=== PATIENT | male | born 1950 | race Caucasian/White ===

== ENCOUNTER 2017-03-08 22:38 | Emergency (ER) | payer MEDICARE, BC ==
[2017-03-08] MEDS ORDERED: Lidocaine 1% 30 ML SDV INJECT ONE (23:28)
[2017-03-08] MEDS ORDERED: Bacitracin Oint 1 GM U/D Packet TOP ONE (23:28)
[2017-03-09] MEDS ORDERED: Amoxicillin/Clavulanate K 875-125 MG Tab PO ONE (00:06)
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
[2017-03-09 01:18] VITALS: BP 163/90
== END 2017-03-09 01:06 | disposition home or self-care (01) ==
LOC: DL.ED 22:38
DX: S61.213A Laceration without foreign body of left middle finger without damage to nail, initial encounter (principal); E78.00 Pure hypercholesterolemia, unspecified; K21.9 Gastro-esophageal reflux disease without esophagitis; I12.9 Hypertensive chronic kidney disease with stage 1 through stage 4 chronic kidney disease, or unspecified chronic kidney disease; N18.9 Chronic kidney disease, unspecified; E03.9 Hypothyroidism, unspecified; Z88.1 Allergy status to other antibiotic agents; Z88.5 Allergy status to narcotic agent; Z88.8 Allergy status to other drugs, medicaments and biological substances; Z91.011 Allergy to milk products; Z91.018 Allergy to other foods; Z79.82 Long term (current) use of aspirin; Z79.899 Other long term (current) drug therapy; Z98.890 Other specified postprocedural states; W23.1XXA Caught, crushed, jammed, or pinched between stationary objects, initial encounter
CPT/HCPCS: 12001; 99283; A9270

== ENCOUNTER 2018-12-12 06:56 | Day surgery (SDC) | payer MEDICARE, BC ==
[2018-12-12] MEDS ORDERED: Sodium Chloride 0.9% 10 ML Syringe IV ONE (06:57)
[2018-12-12] MEDS ORDERED: Midazolam 1 MG/ML 2 ML SDV IV ONE (06:57)
[2018-12-12] MEDS ORDERED: Dexamethasone 4 MG/ML SDV IV ONE (06:57)
[2018-12-12] MEDS ORDERED: Sodium Chloride 0.9% 10 ML Syringe FLUSH PRN (07:00)
[2018-12-12] MEDS ORDERED: Phenylephrine 10% Ophth Soln 5 ML Bot EYELF PRN (07:00)
[2018-12-12] MEDS ORDERED: Moxifloxacin 0.5% Ophth Soln 3 ML Bottle EYELF ONE (07:00)
[2018-12-12] MEDS ORDERED: Timolol Maleate 0.5% Ophth Soln 5 ML Bottle EYELF ONE (07:00)
[2018-12-12] MEDS ORDERED: Cataract Ophth Solution EYELF ONE (07:00)
[2018-12-12] MEDS ORDERED: Ondansetron 4 MG/2 ML SDV IVPUSH PRN (07:00)
[2018-12-12] MEDS ORDERED: Phenylephrine 10% Ophth Soln 5 ML Bot EYELF ONE (07:00)
[2018-12-12] MEDS ORDERED: Acetaminophen 325 MG Tab PO PRN (07:00)
[2018-12-12] MEDS ORDERED: Proparacaine 0.5% Ophth Soln 15 ML Bottle EYELF ONE (07:00)
[2018-12-12] MEDS ORDERED: Povidone-Iodine 5% Sterile Ophth Soln 30 ML Bottle EYELF ONE ×2 (07:00→08:26)
[2018-12-12] MEDS ORDERED: Lidocaine 1% 30 ML SDV ONE (08:26)
[2018-12-12] MEDS ORDERED: Tetracaine HCl/PF 0.5% 4 ML Bottle EYELF ONE (08:26)
[2018-12-12] MEDS ORDERED: Apraclonidine 0.5% Ophth Soln 5 ML Bot EYELF ONE (08:26)
[2018-12-12] MEDS ORDERED: Vancomycin 500 MG SDV EYELF ONE (08:27)
[2018-12-12] MEDS ORDERED: Dexamethasone/Neomycin/Polymyxin B Ophth Oint 3.5 GM Tube EYELF ONE (08:27)
[2018-12-12] MEDS ORDERED: Diclofenac Sodium 0.1% Ophth Soln 5 ML Bottle EYELF ONE (08:27)
[2018-12-12] MEDS ORDERED: Balanced Salt Solution Ophth Irrig 500 ML Bottle IOCULAR ONE (08:27)
[2018-12-12] MEDS ORDERED: Chondroitin Sulfate/Hyaluronate Sodium Ophth Inj 0.75 ML Syringe EYELF ONE (08:27)
[2018-12-12 08:55] VITALS: PULSE 69
[2018-12-12 09:23] VITALS: BP 133/84
--- NOTE | 2018-12-12 11:32 | OR ---
DATE: PREOPERATIVE DIAGNOSIS: Visually significant mixed cataract, left eye. POSTOPERATIVE DIAGNOSIS: Visually significant mixed cataract, left eye. PROCEDURE: Extracapsular cataract extraction with intraocular lens implant, left eye. ANESTHESIA: Topical/local MAC. COMPLICATIONS: None. INDICATION: Mr. Acosta was seen in the clinic. He has had complaints of a slow progressive decrease in vision. His clinical examination reveals visually significant mixed cataract. He has difficulty reading and difficulty playing games on his phone. He is unhappy with his vision. I explained options, offered cataract surgery, and I explained risks including, but not limited to, infection, retinal detachment, loss of vision, and need for additional surgery amongst others. We discussed implant options. He has requested a monofocal implant. OPERATIVE DESCRIPTION: After informed consent was obtained and the risks, benefits, and alternatives were explained, the patient was brought to the operative suite and topical anesthesia was administered. The patient was then prepped and draped in the sterile fashion and attention was placed on the left eye. A sterile lid speculum was placed into the left eye to allow operative exposure. A full-thickness paracentesis was made in the temporal portion of the operative eye. Preservative-free lidocaine 0.1 mL was injected into the anterior chamber followed by viscoelastic. A full-thickness corneal incision was then made into the anterior chamber. A bent needle cystotome was used to create a small johnathan in the anterior capsule. The capsulorrhexis forceps was then used to create a 360-degree curvilinear capsulorrhexis. The nucleus was then removed using a phacoemulsification handpiece and the remaining cortical material was then removed with irrigation and aspiration handpiece. Following removal of the cortical material, the capsular bag was then inspected and noted to be free of any holes or tears. Viscoelastic was then injected into the capsular bag and the intraocular lens was inserted into the capsular bag. The viscoelastic material was then removed from both the anterior and posterior chambers and from behind the IOL. The lens and capsular bag were then reinspected. The IOL was well centered and the capsular bag intact. The wound and paracentesis sites were inspected and hydrated with balanced saline solution. Both were found to be self-sealing. The intraocular pressure was assessed digitally and found to be within normal range. A good red reflex was noted at the completion of the procedure. No complications occurred during the operation. At the completion of the procedure, David Lua, and Iopidine drops were placed into the operative eye. A sterile eye shield was placed over the operative eye and the patient was transported to the postoperative recovery area having tolerated the procedure well. Postoperative instructions were given along with a postoperative appointment. The patient was advised to call with any questions or concerns. [facility] /[id number]
== END 2018-12-12 09:21 | disposition home or self-care (01) ==
LOC: DL.SDS 06:56
PROVIDERS: ATTEND Ophthalmology
DX: H26.8 Other specified cataract (principal); G04.90 Encephalitis and encephalomyelitis, unspecified; G62.9 Polyneuropathy, unspecified; I12.9 Hypertensive chronic kidney disease with stage 1 through stage 4 chronic kidney disease, or unspecified chronic kidney disease; N18.3 Chronic kidney disease, stage 3 (moderate); C11.9 Malignant neoplasm of nasopharynx, unspecified; Z51.11 Encounter for antineoplastic chemotherapy; E03.9 Hypothyroidism, unspecified; E78.5 Hyperlipidemia, unspecified; K21.9 Gastro-esophageal reflux disease without esophagitis; R13.14 Dysphagia, pharyngoesophageal phase; L30.9 Dermatitis, unspecified; M19.90 Unspecified osteoarthritis, unspecified site; Z87.891 Personal history of nicotine dependence; Z88.6 Allergy status to analgesic agent; Z88.1 Allergy status to other antibiotic agents; Z91.040 Latex allergy status; Z88.5 Allergy status to narcotic agent; Z88.8 Allergy status to other drugs, medicaments and biological substances; Z91.018 Allergy to other foods; Z91.048 Other nonmedicinal substance allergy status
CPT/HCPCS: 00142; 66984; A9270; C1780; J1100; J2001; J2250; J3370; V2632

== ENCOUNTER 2020-08-18 06:57 | Day surgery (SDC) | payer MEDICARE, BC ==
[~2020-08-18 06:57] MED LIST: Dextrose 5%-0.45% NaCl 1,000 ML IV SCH; Sodium Chloride 0.9% 10 ML Syringe FLUSH PRN
[2020-08-18] MEDS ORDERED: Propofol 200 MG/20 ML SDV IV ONE (06:58)
[2020-08-18] MEDS ORDERED: Dextrose 5%-0.45% NaCl 1,000 ML IV SCH (07:00)
--- NOTE | 2020-08-18 10:51 | OR ---
DATE: 08/18/2020 PROCEDURES: Total colonoscopy, narrow-band imaging, and cold snare polypectomy. INSTRUMENT USED: PCF-H190DL Olympus video colonoscope. PREMEDICATIONS: Provided by Anesthesiology Services. INDICATIONS: The patient with increasing constipation, not responsive to medical measures. Colonoscopic examination is done for detection of any polypoid lesions and removal, endoscopic hemostasis therapy if needed. DESCRIPTION OF PROCEDURE: Initial rectal exam was unremarkable. Rigid anoscopy was normal. The colonoscope was passed with ease. Numerous scattered diverticula were noted in the distal left colon along with some deformity. The scope was passed with ease up to the cecum. Photographs were taken of the cecum showing more than 1 cm sized benign-appearing polyp just near the appendiceal orifice. NBI views were obtained, photographs were taken. No bleeding was noted from any of the visualized areas at the commencement of the examination. The bowel preparation was found to be adequate, Clinton scale 2 in all the regions. In the proximal ascending colon, diminutive benign-appearing polyp was noted, NBI views were obtained, photographs were taken, cold snare polypectomy was done, the tissue was retrieved and sent for histopathology. No stricture. No vascular ectasia. No large isolated ulcerations seen. No evidence of diffuse inflammatory bowel disease in the form of friability, contact bleeding, or ulcerations. Probing the proximal sides of folds and flexures using adequate distention and clearing up the stool material, withdrawal of the scope was made, cecum to rectum time over 6 minutes. No bleeding was noted from any of the visualized areas at the completion of examination. IMPRESSION: 1. Diverticulosis. 2. Sessile cecal polyp. 3. Diminutive ascending colon polyp. The patient tolerated the procedure well. [facility] /[id number]
[2020-08-18 11:31] VITALS: BP 179/90; PULSE 51
== END 2020-08-18 10:20 | disposition home or self-care (01) ==
LOC: DL.ENDO 06:57
PROVIDERS: ATTEND Internal Medicine Gastroenterology
DX: Z12.11 Encounter for screening for malignant neoplasm of colon (principal); K63.5 Polyp of colon; K57.30 Diverticulosis of large intestine without perforation or abscess without bleeding; E66.09 Other obesity due to excess calories; I10 Essential (primary) hypertension; E78.00 Pure hypercholesterolemia, unspecified; E03.9 Hypothyroidism, unspecified; G62.9 Polyneuropathy, unspecified; N52.9 Male erectile dysfunction, unspecified; N40.0 Benign prostatic hyperplasia without lower urinary tract symptoms; Z98.890 Other specified postprocedural states; Z87.891 Personal history of nicotine dependence; Z68.28 Body mass index [BMI] 28.0-28.9, adult
CPT/HCPCS: 00812; J2704; J7042

== ENCOUNTER 2021-11-03 08:54 | Emergency (ER) | payer MEDICARE, BC ==
[2021-11-03 09:26] VITALS: BP 198/113; PULSE 59
[2021-11-03 09:54] LABS: ANION GAP 12.8 mEq/L (7-13)
== END 2021-11-03 10:21 | disposition home or self-care (01) ==
LOC: DL.ED 08:54
DX: I12.9 Hypertensive chronic kidney disease with stage 1 through stage 4 chronic kidney disease, or unspecified chronic kidney disease (principal); E03.9 Hypothyroidism, unspecified; N18.9 Chronic kidney disease, unspecified; E83.42 Hypomagnesemia; E78.00 Pure hypercholesterolemia, unspecified; N40.0 Benign prostatic hyperplasia without lower urinary tract symptoms; Z88.5 Allergy status to narcotic agent; Z88.1 Allergy status to other antibiotic agents; Z91.011 Allergy to milk products; Z88.8 Allergy status to other drugs, medicaments and biological substances; Z91.040 Latex allergy status; Z79.82 Long term (current) use of aspirin; Z79.899 Other long term (current) drug therapy
CPT/HCPCS: 36415; 80053; 83735; 84443; 84484; 85025; 93005; 93010; 99284; 99284-25

== ENCOUNTER 2022-05-01 08:33 | Emergency (ER) | payer MEDICARE, BC ==
[2022-05-01 08:55] VITALS: BP 145/93; PULSE 64
[2022-05-01 09:32] LABS: PTT,PARTIAL THROMBOPLSTIN TIME 23.8 SEC (22.0-34.0)
[2022-05-01 09:39] LABS: ANION GAP 10.9 mEq/L (7-13); CHLORIDE,CL 104 mmol/L (98-107); SODIUM,NA 141 mmol/L (136-145)
[2022-05-01 09:40] LABS: ESTIMATED GFR 56 mL/min (>=60)
[2022-05-01] MEDS ORDERED: metroNIDAZOLE 250 MG Tab ONE (10:05)
[2022-05-01] MEDS ORDERED: Ciprofloxacin 500 MG Tab ONE (10:05)
== END 2022-05-01 10:15 | disposition home or self-care (01) ==
LOC: DL.ED 08:33
DX: K62.5 Hemorrhage of anus and rectum (principal); K57.30 Diverticulosis of large intestine without perforation or abscess without bleeding; K80.20 Calculus of gallbladder without cholecystitis without obstruction; E78.00 Pure hypercholesterolemia, unspecified; I10 Essential (primary) hypertension; Z91.048 Other nonmedicinal substance allergy status; Z88.1 Allergy status to other antibiotic agents; Z88.5 Allergy status to narcotic agent; Z88.6 Allergy status to analgesic agent; Z91.040 Latex allergy status; Z88.8 Allergy status to other drugs, medicaments and biological substances; Z91.011 Allergy to milk products; Z79.899 Other long term (current) drug therapy; Z79.82 Long term (current) use of aspirin
CPT/HCPCS: 36415; 74176; 80053; 82272; 83605; 85025; 85610; 85730; 86140; 99284

== ENCOUNTER 2022-06-06 06:58 | Day surgery (SDC) | payer MEDICARE, BC ==
[~2022-06-06 06:58] MED LIST changes: -Dextrose 5%-0.45% NaCl 1,000 ML IV SCH; +Sodium Chloride 0.9% 10 ML Syringe FLUSH SCH
[2022-06-06] MEDS: Dextrose 5%-0.45% NaCl 1,000 ML IV SCH (07:48)
[2022-06-06 11:54] VITALS: BP 150/78
[2022-06-06 12:56] VITALS: PULSE 69
== END 2022-06-06 12:47 | disposition home or self-care (01) ==
LOC: DL.ENDO 06:58
PROVIDERS: ATTEND Internal Medicine Gastroenterology
DX: K62.5 Hemorrhage of anus and rectum (principal); K57.30 Diverticulosis of large intestine without perforation or abscess without bleeding; K21.9 Gastro-esophageal reflux disease without esophagitis; I10 Essential (primary) hypertension; I12.9 Hypertensive chronic kidney disease with stage 1 through stage 4 chronic kidney disease, or unspecified chronic kidney disease; N18.9 Chronic kidney disease, unspecified; E11.9 Type 2 diabetes mellitus without complications; E78.00 Pure hypercholesterolemia, unspecified; E03.9 Hypothyroidism, unspecified; N40.0 Benign prostatic hyperplasia without lower urinary tract symptoms; Z98.890 Other specified postprocedural states; Z86.010 Personal history of colon polyps; Z87.891 Personal history of nicotine dependence; Z79.899 Other long term (current) drug therapy; Z88.1 Allergy status to other antibiotic agents; Z88.5 Allergy status to narcotic agent
CPT/HCPCS: 00811; 45378; J7042